=== PATIENT | male | born 1980 | race Caucasian/White ===

== ENCOUNTER 2020-04-29 17:55 | Emergency (ER) | payer OTHER | END 2020-04-30 13:24 | disposition short-term general hospital (02) | LOC: ER1 17:55 | DX: R45.851 Suicidal ideations (principal); Z20.822 Contact with and (suspected) exposure to COVID-19; Z86.19 Personal history of other infectious and parasitic diseases | CPT/HCPCS: 99284; Q0177; U0002 ==